=== PATIENT | male | born 1945 | race Hispanic/Latino ===

== ENCOUNTER → 2019-04-26 | Day surgery (SDC) | payer MEDICARE ==
[2019-04-17 15:37] LABS: BASOPHILS % 0.6 % (0.0-1.0); EOSINOPHILS # (AUTO) 0.2 (0.0-0.4); EOSINOPHILS % 3.4 % (0.0-6.0); HEMATOCRIT 41.4 % (38.2-49.6); HEMOGLOBIN 13.9 g/dL (14.0-18.0); LYMPHOCYTES # (AUTO) 2.3 (1.0-3.2); MEAN CORPUSCULAR HEMOGLOBIN 30.1 pg (28-32); MEAN CORPUSCULAR HGB CONC 33.6 g/dL (31-35); MEAN CORPUSCULAR VOLUME 89.6 fL (81-99); MONOCYTES # (AUTO) 0.5 (0.2-0.8); MONOCYTES % 8.3 % (4.4-11.3); NEUTROPHILS # (AUTO) 3.1 (2.1-6.9); NEUTROPHILS % 50.5 % (38.7-80.0); PLATELET COUNT 221 x10e3/uL (140-360); RED BLOOD COUNT 4.62 x10e6/uL (4.3-5.7); RED CELL DISTRIBUTION WIDTH 13.6 % (11.7-14.4)
[2019-04-17 15:52] LABS: BLOOD UREA NITROGEN 15 mg/dL (7-26); BUN/CREATININE RATIO 19 (6-25); CARBON DIOXIDE 28 mmol/L (22-29); CHLORIDE 107 mmol/L (98-107); CREATININE, SERUM 0.79 mg/dL (0.72-1.25); EST GLOMERULAR FILTRATION RATE > 60 ML/MIN (60-); GLUCOSE 99 mg/dL (74-118); SODIUM 142 mmol/L (136-145)
[~2019-04-26] MED LIST: ASPIR 8181 MG PO; BUPIVACAINE HC 0.75% PF 10ML VIAL INJ ONE; CHONDR SU A NA/HYALUR SOD 1 EACH KIT IO ONE; CYCLOPENTOLATE HCL 2% OPTH SOLN 2 ML BTL OP ONE; EPINEPHRINE HCL 1:1000 1ML 1 MG/ML AMP ONE; ESIDRIX25 MG PO; ESOMEPRAZOLE MA20 MG PO; GATIFLOXACIN(OPTH) 5 ML LIQD ONE; LIDOCAINE 2% /EPINEPHRINE 20 ML SDV INJ ONE; LIDOCAINE HCL 2% LOCAL INJ 5 ML SDV VIAL INJ ONE; LIDOCAINE HCL-PF 4% 40 MG/1 ML 5ML AMP ONE; MIDAZOLAM HCL 2 MG/2 ML VIAL ONE; PHENYLEPHRINE HCL 2 ML DROPS ONE; PILOCARPINE HCL(OPTH) 15 ML LIQD ONE; POVIDONE IODINE 5% (OPTH) 30 ML BTL ONE; PROPOFOL IV EMULSION 10 MG/ML 20 ML VIAL ONE; TOBRAMYCIN/DEXAMETHASONE(OPTH) 3.5 GM TUBE ONE; ULTRAM 50MG50 MG PO
--- OUTSIDE RECORDS SUMMARY | 2019-04-26 06:20 | XMS REPORT ---
Author Author [facility] Address Unknown Phone Unavailable Care Team Providers Care Residential Door Unit Installer Name Role Phone Unavailable Unavailable Payers Payer Name Policy Type Policy Number Effective Date Expiration Date Problems This patient has no known problems. Allergies, Adverse Reactions, Alerts Allergy Name Allergy Type Status Severity Reaction(s) Onset Date Inactive Date Treating Clinician Comments No Known Allergies DA Active U 2018-11-02 00:00:00 No Known Drug Intolerances DA Active U 2009-10-30 00:00:00 Medications This patient has no known medications. Encounters Start Date/Time End Date/Time Encounter Type Admission Type Attending [facility] Care Facility Care Department Encounter ID 2019-03-23 16:05:00 2019-03-23 16:05:00 Outpatient [facility] URO [id number] 2018-09-29 07:12:00 2018-09-29 07:12:00 Outpatient [facility] CAR [id number] 2018-07-05 08:30:00 2018-07-05 08:30:00 Outpatient [facility] CAR [id number] Results Test Description Test Time Test Comments Text Results Atomic Results Result Comments LUNG 2018-11-16 10:49:00 RUN DATE: 11/16/18 [facility] - Lab PAGE 1 RUN TIME: 1049 Specimen Inquiry RUN USER: INTERFACE PATIENT: VEL LAGUNA LOC: LEAH #: [id number] AGE/SX: 72/M ROOM: RE11/13/18REG DR: Robert Carnes MD : 43 BED: DIS: STATUS: [facility] TLOC: SPEC #: [id number] RECD: 11/13/18 STATUS: [facility] #: [id number] TODD: 11/13/18- SUBM DR: Robert Carnes MD ENTERED: 11/13/18 SP TYPE: LUNG OTHR DR: Alejandra Maravilla MD ORDERED: GROSS COPIES TO: Alejandra Maravilla MD [address] [facility] [address] [place] [address] Robert Carnes MD [address] [place] [address] PROCEDURES: GROSS (11/15/18-141) TISSUES: LUNG, NOS - LEFT BX; RINSE, BX AND 5 SLIDES CLINICAL HISTORY COLLECTION DATE: 11/13/18 HISTORY OF LUNG MASS LEFT, SMOKER QUIT 28 YEARS AGO COMMENT Multiple levels of the cell block and biopsy specimen are examined as well as cytology preparations. No significant amount of tissue is identified in the cell block. Small fragments of alveolar lung parenchyma are present in the biopsy. The alveolar septae are thin and delicate. There is no significant acute or chronic inflammation within the alveolar septae or within the alveolar spaces. A few macrophages are present in the alveolar spaces and a small amount of anthracotic pigment deposition is noted. The alveolar lung parenchyma is otherwise unremarkable in appearance. The cytology slides show, predominately, a background of blood. Scattered acute and chronic inflammatory cells are present as well as macrophages. Relatively few epithelial cells are p resent. Features diagnostic of malignancy are not seen in either specimen. Consider re-biopsy if indicated. Correlation is necessary. Intradepartmental consultation: DMW CONTINUED ON NEXT PAGE RUN DATE: 11/16/18 [facility] PAGE 2 RUN TIME: 1049 Specimen Inquiry RUN USER: INTERFACE SPEC #: [id number] PATIENT: JASEVELSUSAN ROBERSON #[id number] (Continued) FINAL DIAGNOSIS Left lung, fine needle aspiration biopsy: MINUTE FRAGMENTS OF ALVEOLAR LUNG PARENCHYMA WITH MILD ANTHRACOTIC PIGMENT DEPOSITION AND FEW INTRAALVEOLAR MACROPHAGES NO SIGNIFICANT ACUTE OR CHRONIC INFLAMMATION PRESENT NO GRANULOMAS OR AREAS OF NECROSIS PRESENT FEW INFLAMMATORY CELLS, MACROPHAGES AND RARE BLAND EPITHELIAL CELLS IN BACKGROUND OF BLOOD NO MALIGNANCY IDENTIFIED RRB/cira D [id number] MACROSCOPIC The specimen consists of five slides to be stained for cytologic evaluation, aspirate fluid to be concentrated and processed for cytologic evaluation and core biopsy material received in formalin, labeled with the patient's name, and identified as "left lung". Within the container are pulido-red core biopsies measuring 0.15 to 0.4 cm in length by less than 0.1 cm in diameter. GROSS PERFORMED AT [facility] [address] [place] [address] (p)[phone] MICROSCOPIC All of the stains, including any controls performed, stain appropriately. MICROSCOPIC PERFORMED AT [facility] [address] [place] [address] [id number] (p)[phone] PERFORMING SITE Diagnosis performed at: [facility], [address] [id number] CONTINUED ON NEXT PAGE RUN DATE: 11/16/18 [facility] PAGE 3 RUN TIME: 1049 Specimen Inquiry RUN USER: INTERFACE SPEC #: [id number] PATIENT: JASEVEL ROBERSON #[id number] (Continued) Signed SIGNATURE ON FILE Sathish Russell MD 11/16/18 1049 ---- END OF REPORT BODY FLUID CELL CT/DIFF 2018-11-14 11:12:00 FLUID SOURCE (test code=SOURCEFL) LUNG NODULE FLUID COLOR (test code=COLFL) PINKISH COLORLESS FLUID APPEARANCE (test code=APPFL) HAZY FLUID WBC (test code=WBCFL) 4 per mm3 0-150 QC performed - Cell count on both sides of chamber agreeswithin 20% ? Y FLUID RBC (test code=RBCFL) 707 per mm3 0-50 FLUID POLY (test code=POLYFL) 50.0 % FLUID LYMPHOCYTE (test code=LYMPHFL) 50.0 % TOTAL CELLS COUNTED ON DIFF (test code=TOTCELLFL) 2 cells REVIEWED BY (test code=REVIEW) KIANA FRANK PATHOLOGIST BODY FLUID CELL [id number] 10:24:00* Test Item Value Reference Range Comments FLUID SOURCE (test code=SOURCEFL) LUNG NODULE FLUID COLOR (test code=COLFL) PINKISH COLORLESS FLUID APPEARANCE (test code=APPFL) HAZY FLUID WBC (test code=WBCFL) 4 per mm3 0-150 QC performed - Cell count on both sides of chamber agreeswithin 20% ? Y FLUID RBC (test code=RBCFL) 707 per mm3 0-50 TOTAL CELLS COUNTED ON DIFF (test code=TOTCELLFL) cells REVIEWED BY (test code=REVIEW) KIANA FRANK PATHOLOGIST MANY RED BLOOD CELLS PRESENT; ONLY RARE POLY AND LYMPHOCYTE SEEN - CT GUID [facility] [id number] 17:04:00 Name: VEL LAGUNA [facility] : 1945 Age/S: 72 / M [address] Unit #: [id number] Loc: PAN[place] [address] Phys: Robert Carnes MD Acct: [id number] Dis Date: Status: REG [facility] PHONE #: [phone] Exam Date: 11/13/2018 1110 FAX #: [phone] Reason: BIOPSY EXAMS: CPT CODE: [id number] [facility] [id number] EXAM: CT-guided lung biopsy; INFORMATION: Noncalcified left lower lobe lung nodule; TECHNIQUE AND FINDINGS: CT dose reduction protocol; 2.5 mm axial scans. Benefits and risks of procedure including risks of hemorrhage and pneumothorax, were explained to the patient and informed consent was obtained. He was placed prone on the CT table and localization scans were obtained. They showed a 12 mm subpleural, noncalcified nodule in the lateral basilar portions of the left lower lobe. The patient's skin in the left posterior inferior prepped and draped in the usual sterile fashion. Xylocaine was administered and a short 16-gauge guiding cannula was inserted into the soft tissues of the left lateral inferior chest wall. The biopsy was challenging because of the small size of the nodule and its location in the posterior sulcus and because difficulty obtaining consistent with breath-hold by the patient. 3 passes were made with a 20-gauge core biopsy needle and 2 passes were made with a 20-gauge Chiba needle. Tissue material was sent to the pathology lab. Post biopsy scans showed minimal amount of hemorrhage near the target lesion. Also noticed was a minimal localized pneumothorax near the posterior portion of the left lung base. IMPRESSION: 1. Successful CT-guided fine-needle aspiration and 20-gauge core biopsy of a small, noncalcified nodule in the lateral posterior aspect of the left lower lobe. 2. Minimal parenchymal hemorrhage and minimal pneumothorax; a follow-up chest x-ray will be obtained. at 1705 Reported and signed by: Robert Carnes M.D. CC: Alejandra Maravilla MD; Robert Carnes MD Technologist:Twila Faulkner,RT(R),CT CTDI: DLP: Trnscb Date/Time: 11/13/2018 (170) [email or web address] Orig Print D/T: S: 11/13/2018 (3708) PAGE 1 Signed Report - XR CHEST 1 [id number] 13:47:00 FAX: Alejandra Archibald MD [phone] [place]: St: REG FAX: Robert White [phone] Name: VEL LAGUNA [facility] : 1945 Age/S: 72/M [address] [facility] Unit #: [id number] Loc: [place] [address] Phys: Robert Carnes MD Acct: [id number] Dis Date: Status: REG [facility] PHONE #: [phone] Exam Date: 11/13/2018 1324 FAX #: [phone] Reason: LLL lung nodule; st.p. CT bx; EXAMS: CPT CODE: [id number] XR CHEST 1 V 89173 HISTORY: Left lower lobe lung nodule and biopsy. COMPARISON: CT chest from October 25, 2018. No pneumothorax after lung biopsy. The lungs are clear. Cardiomegaly. Apical pleural thickening. IMPRESSION: No pneumothorax after left lung biopsy. at 6231 Reported and signed by: Jacques Leung M.D. CC: Alejandra Maravilla MD; Robert Carnes MD Technologist: Kala Cam) Trnscrd Date/Time/By: 11/13/2018 (5897) : By: [email or web address] Orig Print D/T: S: 11/13/2018 (8223) PAGE 1 Signed Report BODY FLUID CELL [id number] 12:59:00* Test Item Value Reference Range Comments FLUID SOURCE (test code=SOURCEFL) LUNG NODULE FLUID COLOR (test code=COLFL) PINKISH COLORLESS FLUID APPEARANCE (test code=APPFL) HAZY FLUID WBC (test code=WBCFL) 4 per mm3 0-150 QC performed - Cell count on both sides of chamber agreeswithin 20% ? Y FLUID RBC (test code=RBCFL) 707 per mm3 0-50 TOTAL CELLS COUNTED ON DIFF (test code=TOTCELLFL) cells REVIEWED BY (test code=REVIEW) PATHOLOGIST PROTHROMBIN [id number] 15:30:00* Test Item Value Reference Range Comments PROTHROMBIN TIME PATIENT (test code=PTP) 11.6 seconds 9.0-14.0 INTERNATIONAL NORMAL RATIO (test code=INR) 1.0 0.8-1.2 The therapeutic range for oral anticoagulant therapy formost indications is an international normalized ratio (INR)of between 2.0 and 3.0. The recommended therapeutic INRrange for various clinical situations is listed below: Clinical Situation INR range Pulmonary e mbolism treatment (2.0-3.0)Venous thrombosis treatmentVenous thrombosis prophylaxis (high risk surgery)Prevention of systemic embolism from: Acute myocardial infarction Valvular heart disease Atrial fibrillation Mechanical prosthetic heart valves (2.5-3.5) THROMBOPLASTIN TIME [id number] 15:30:00* Test Item Value Reference Range Comments THROMBOPLASTIN TIME PARTIAL (test code=PTT) 29.7 seconds 25.0-36.5 CBC W/AUTO [id number] 14:55:00* Test Item Value Reference Range Comments WHITE BLOOD CELL (test code=WBC) 10.0 K/mm3 4.5-12.5 RED BLOOD CELL (test code=RBC) 4.68 mill/mm3 4.0-5.8 HEMOGLOBIN (test code=HGB) 13.7 gram/dL 13.0-17.5 HEMATOCRIT (test code=HCT) 41.1 % 42.0-52.0 MEAN CELL VOLUME (test code=MCV) 87.8 fL 80-98 MEAN CELL HGB (test code=MCH) 29.3 picogram 27.0-33.0 MEAN CELL HGB CONCETRATION (test code=MCHC) 33.3 gram/dL 33.0-36.0 RED CELL DISTRIBUTION WIDTH (test code=RDW) 13.5 % 11.6-16.2 RED CELL DISTRIBUTION WIDTH SD (test code=RDW-SD) 43.2 fL 37.0-51.0 PLATELET COUNT (test code=PLT) 240 K/mm3 150-450 MEAN PLATELET VOLUME (test code=MPV) 10.6 fL 6.7-11.0 NEUTROPHIL % (test code=NT%) 81.7 % 39.0-69.0 IMMATURE GRANULOCYTE % (test code=IG%) 0.5 % 0.0-5.0 LYMPHOCYTE % (test code=LY%) 12.0 % 25.0-55.0 MONOCYTE % (test code=MO%) 5.1 % 0.0-10.0 EOSINOPHIL % (test code=EO%) 0.4 % 0.0-5.0 BASOPHIL % (test code=BA%) 0.3 % 0.0-1.0 NUCLEATED RBC % (test code=NRBC%) 0.0 % 0-0 NEUTROPHIL # (test code=NT#) 8.20 K/mm3 1.8-7.7 IMMATURE GRANULOCYTE # (test code=IG#) 0.05 x10 3/uL 0-0.03 LYMPHOCYTE # (test code=LY#) 1.20 K/mm3 1.0-5.0 MONOCYTE # (test code=MO#) 0.51 K/mm3 0-0.8 EOSINOPHIL # (test code=EO#) 0.04 K/mm3 0.0-0.5 BASOPHIL # (test code=BA#) 0.03 K/mm3 0.0-0.2 NUCLEATED RBC # (test code=NRBC#) 0.00 K/mm3 0.0-0.1 CBC W/AUTO [id number] 14:54:00* Test Item Value Reference Range Comments WHITE BLOOD CELL (test code=WBC) K/mm3 4.5-12.5 RED BLOOD CELL (test code=RBC) mill/mm3 4.0-5.8 HEMOGLOBIN (test code=HGB) 13.7 gram/dL 13.0-17.5 HEMATOCRIT (test code=HCT) % 42.0-52.0 MEAN CELL VOLUME (test code=MCV) fL 80-98 MEAN CELL HGB (test code=MCH) picogram 27.0-33.0 MEAN CELL HGB CONCETRATION (test code=MCHC) gram/dL 33.0-36.0 RED CELL DISTRIBUTION WIDTH (test code=RDW) % 11.6-16.2 RED CELL DISTRIBUTION WIDTH SD (test code=RDW-SD) fL 37.0-51.0 PLATELET COUNT (test code=PLT) K/mm3 150-450 MEAN PLATELET VOLUME (test code=MPV) fL 6.7-11.0 NEUTROPHIL % (test code=NT%) % 39.0-69.0 IMMATURE GRANULOCYTE % (test code=IG%) % 0.0-5.0 LYMPHOCYTE % (test code=LY%) % 25.0-55.0 MONOCYTE % (test code=MO%) % 0.0-10.0 EOSINOPHIL % (test code=EO%) % 0.0-5.0 BASOPHIL % (test code=BA%) % 0.0-1.0 NEUTROPHIL # (test code=NT#) K/mm3 1.8-7.7 LYMPHOCYTE # (test code=LY#) K/mm3 1.0-5.0 MONOCYTE # (test code=MO#) K/mm3 0-0.8 EOSINOPHIL # (test code=EO#) K/mm3 0.0-0.5 BASOPHIL # (test code=BA#) K/mm3 0.0-0.2 - CT CHEST W/O [id number] 08:19:00 Name: VEL LAGUNA [facility] : 1945 Age/S: 72 / M [address] Unit #: [id number] Loc: PAN[place] [address] Phys: Anam Villela MD Acct: [id number] Dis Date: Status: REG CLI PHONE #: [phone] Exam Date: 10/25/2018 0753 FAX #: [phone] Reason: PULMONARY NODULE EXAMS: CPT CODE: [id number] CT CHEST W/O CONTRAST 71438 HISTORY: Pulmonary nodule. COMPARISON: None available. CT chest without contrast: Automated exposure control. 1.2 cm noncalcified supradiaphragmatic pleural-based left lateral basal lung nodule. Biopsy or PET scan recommended. 4 mm noncalcified right middle lobe subpleural nodule posterolaterally and 5 and 4 mm right upper lobe lung nodules seen anterolaterally. No acute infiltrates, effusion or congestion. Dependent changes. Elevated right hemidiaphragm. Borderline aneurysmal ascending aorta at 3.5 cm. Descending aorta is borderline aneurysmal at 3 cm. Normal caliber unopacified pulmonary arteries. Thyroid glands are unremarkable. Esophag eal wall is not thickened. No pathologic adenopathy. Cardiac silhouette is mildly enlarged. No pericardial effusion. Visualized upper abdomen demonstrating hyperplastic left adrenal. Subcutaneous tissues and the musculature are normal in appearance. No lytic or blastic lesions note d within the bony skeleton. DJD. IMPRESSION: 1 .2 cm left lateral supradiaphragmatic pleural-based nodule. Biopsy and P ET scan recommended. 4 and 5 mm noncalcified nodules as well within the right upper and middle lobes as described. No pathologic adenopathy. Borderline aneurysmal ascending aorta at 3.5 cm and descending ao rta is borderline aneurysmal at 3 cm. at 0819 Reported and signed by: Jacques Leung M.D. CC: Anam Villela MD Technologist:Jason Paredes RT(R),(MR),(CT) CTDI: DLP: Trnscb Date/Time: 10/25/2018 (0819) [email or web address] Orig Print D/T: S: 10/25/2018 (0835) PAGE 1 Signed Report
[2019-04-26 09:35] VITALS: BP 128/61
== END | disposition home or self-care (01) ==
LOC: OR 05:58
PROVIDERS: ATTEND Ophthalmology
DX: H25.11 Age-related nuclear cataract, right eye (principal); I10 Essential (primary) hypertension; K21.9 Gastro-esophageal reflux disease without esophagitis; R00.1 Bradycardia, unspecified; Z01.810 Encounter for preprocedural cardiovascular examination; Z01.812 Encounter for preprocedural laboratory examination; Z79.82 Long term (current) use of aspirin
CPT/HCPCS: 36415; 66982; 80048; 85025; 93005; J0171; J2001 ×2; J2250; J2704; V2632

== ENCOUNTER → 2020-01-22 | Day surgery (SDC) | payer MEDICARE, OTHER ==
[2020-01-17 13:33] LABS: BASOPHILS % 0.5 % (0.0-1.0); EOSINOPHILS % 0.2 % (0.0-6.0); HEMATOCRIT 38.6 % (38.2-49.6); LYMPHOCYTES # (AUTO) 1.9 (1.0-3.2); LYMPHOCYTES % 32.9 % (18.0-39.1); MEAN CORPUSCULAR HEMOGLOBIN 29.5 pg (28-32); MEAN CORPUSCULAR HGB CONC 33.7 g/dL (31-35); MEAN CORPUSCULAR VOLUME 87.5 fL (81-99); MONOCYTES # (AUTO) 0.5 (0.2-0.8); MONOCYTES % 9.2 % (4.4-11.3); NEUTROPHILS # (AUTO) 3.4 (2.1-6.9); PLATELET COUNT 192 x10e3/uL (140-360); RED BLOOD COUNT 4.41 x10e6/uL (4.3-5.7); RED CELL DISTRIBUTION WIDTH 13.2 % (11.7-14.4)
[~2020-01-22] MED LIST changes: -BUPIVACAINE HC 0.75% PF 10ML VIAL INJ ONE; -CHONDR SU A NA/HYALUR SOD 1 EACH KIT IO ONE; -CYCLOPENTOLATE HCL 2% OPTH SOLN 2 ML BTL OP ONE; +DOXYCYCLINE HY100 MG PO; -EPINEPHRINE HCL 1:1000 1ML 1 MG/ML AMP ONE; +FENTANYL CITRATE/PF 100MCG/2 ML INJ ONE; +FLAGYL TOP; +FLOMAX0.4 MG PO; -GATIFLOXACIN(OPTH) 5 ML LIQD ONE; -LIDOCAINE 2% /EPINEPHRINE 20 ML SDV INJ ONE; -LIDOCAINE HCL-PF 4% 40 MG/1 ML 5ML AMP ONE; -MIDAZOLAM HCL 2 MG/2 ML VIAL ONE; +MIRTAZAPINE7.5 MG PO; -PHENYLEPHRINE HCL 2 ML DROPS ONE; -PILOCARPINE HCL(OPTH) 15 ML LIQD ONE; -POVIDONE IODINE 5% (OPTH) 30 ML BTL ONE; -TOBRAMYCIN/DEXAMETHASONE(OPTH) 3.5 GM TUBE ONE; +VIT C PO
[2020-01-22 14:41] VITALS: BP 148/75
== END | disposition home or self-care (01) ==
LOC: OR 09:15
PROVIDERS: ATTEND Internal Medicine Gastroenterology
DX: K21.9 Gastro-esophageal reflux disease without esophagitis (principal); D12.2 Benign neoplasm of ascending colon; K29.70 Gastritis, unspecified, without bleeding; K44.9 Diaphragmatic hernia without obstruction or gangrene; K57.30 Diverticulosis of large intestine without perforation or abscess without bleeding; K59.00 Constipation, unspecified; K64.8 Other hemorrhoids; I45.10 Unspecified right bundle-branch block; I44.4 Left anterior fascicular block; M19.90 Unspecified osteoarthritis, unspecified site; R91.1 Solitary pulmonary nodule; I10 Essential (primary) hypertension; E78.5 Hyperlipidemia, unspecified; I65.29 Occlusion and stenosis of unspecified carotid artery; E03.9 Hypothyroidism, unspecified; Z01.810 Encounter for preprocedural cardiovascular examination; Z01.812 Encounter for preprocedural laboratory examination; Z11.59 Encounter for screening for other viral diseases; Z79.82 Long term (current) use of aspirin; Z87.891 Personal history of nicotine dependence
CPT/HCPCS: 36415; 43239; 45384; 85025; 93005; J2001; J2704; J3010; U0002; 45378